=== PATIENT | male | born 1940 | race Hispanic/Latino ===

== ENCOUNTER 2017-07-05 06:27 | Day surgery (SDC) | payer OTHER ==
--- NOTE | 2017-07-04 16:51 | RAD REPORT ---
EXAM DESCRIPTION: RAD - Chest Pa And Lat (2 Views) - 07/04/2017 4:44 pm CLINICAL HISTORY: Hypertension, coronary artery disease. COMPARISON: 09/08/2016, 04/22/2014 FINDINGS: The lungs are mildly emphysematous but clear. The heart is mildly enlarged in size with a single lead pacer/ defibrillator device. No displaced fractures. IMPRESSION: Mild COPD.
[2017-07-04 16:54] LABS: Absolute Lymphocytes (CBC) 3.4 K/uL (0.7-4.9); Absolute Monocytes 0.4 K/uL (0.1-1.3); Absolute Neutrophil 2.7 K/uL (1.8-8.0); Basophils % 0.6 % (0-1.3); Eosinophils % 1.8 % (0-4.4); Hematocrit 41.7 % (39.6-49.0); Lymphocytes % 51.1 % (15.3-44.8); MCH 31.6 pg (27.0-35.0); MPV 8.9 fL (7.6-11.3); Monocytes % 6.2 % (3.3-12.3); RBC Red Blood Cell Count 4.39 M/uL (4.33-5.43)
[2017-07-04 17:22] LABS: Potassium 4.1 mEq/L (3.6-5.0)
[~2017-07-05 06:27] MED LIST: NA CHLORIDE 0.9% 500 ML ONE
[2017-07-05] MEDS ORDERED: HEPA 1000U/500MLS 2,000 UNIT/1,000 ML BAG IV ONE (06:53)
[2017-07-05] MEDS ORDERED: LIDOCAINE 1% 20 ML MDV ONE (06:53)
[2017-07-05] MEDS ORDERED: FENTANYL CITR 100 MCG/2 ML ONE (07:22)
[2017-07-05] MEDS ORDERED: MIDAZOLAM HCL 2 MG/2 ML INJ ONE (07:22)
[2017-07-05] MEDS ORDERED: ATROPINE SULF 1 MG/10 ML SYR IV ONE (07:22)
[2017-07-05] MEDS ORDERED: NA CHLORIDE 0.9% 50 ML ONE (07:23)
[2017-07-05] MEDS ORDERED: PRASUGREL (EFFIENT) 10 MG TAB ONE (08:18)
[2017-07-05] MEDS ORDERED: ASPIRIN 325 MG TAB ONE (08:18)
[2017-07-05] MEDS ORDERED: NA CHLORIDE 0.9% 1,000 ML IV SCH (10:00)
[2017-07-05] MEDS ORDERED: Morphine 2 MG/2 ML SYR IV PRN (10:08)
[2017-07-05] MEDS ORDERED: ZOLPIDEM TARTRATE 10 MG TABLET PO PRN (10:08)
[2017-07-05 10:27] LABS: Absolute Lymphocytes (CBC) 2.4 K/uL (0.7-4.9); Absolute Monocytes 0.3 K/uL (0.1-1.3); Absolute Neutrophil 2.7 K/uL (1.8-8.0); Basophils % 0.2 % (0-1.3); Eosinophils % 2.3 % (0-4.4); Hematocrit 39.2 % (39.6-49.0); Lymphocytes % 43.6 % (15.3-44.8); MCH 32.2 pg (27.0-35.0); MCV 95.8 fL (80-100); MPV 8.8 fL (7.6-11.3); Monocytes % 5.3 % (3.3-12.3)
[2017-07-05] MEDS ORDERED: NITROGLYCERIN 0.4 MG/TAB SL PRN (11:00)
[2017-07-05] MEDS: ACETAMINOPHEN 325 MG TABLET PO PRN ×2 (17:08→23:28)
--- NOTE | 2017-07-05 20:37 | OP ---
Surgeon: Josiah Johnson MD History Of Present Illness: Mr. Marquez is a patient of Dr. Bright. He is 76, has had a history of CHF , defibrillator, coronary artery disease status post stents in the LAD in the past as far as 2012. Chris murillo came in to see me in the office with classic unstable angina symptoms, abnormal EKG. He was admitt ed for outpatient heart catheterization. Procedures: Left heart catheterization, selective coronary artery angiogram, left ventriculogram, an d primary stent of the mid LAD. Procedure In Detail: He was prepped and draped in the routine sterile fashion given 2 mg of Versed f or IV sedation. A 6-Slovak sheath was introduced in the right common femoral artery and StarClose wa s to be used to close the case. The 6-Slovak catheters were used Tea for the left system and the right system had normal right coronary. Normal circumflex. Left ventriculogram showed an ejection fraction of 50% to 55% by pigtail catheter that is much improved compared to his previous studies. Chris murillo had a proximal LAD stent that was patent. Mid LAD had an 80% stenosis, which was reduced to 0% aft er using a 2.5 x 16 Synergy stent at 14 atmosphere. The wire was a Carson wire 0.14. The catheter g uide was XBLAD 3.5 with side holes. The patient tolerated the procedure well. There were no complic ations. Blood loss was 5 cc. Operators: Josiah Johnson M.D., and Fiona Bustamante. Anesthesia: Total conscious sedation was 45 minutes. Final Diagnosis: Coronary artery disease status post successful primary mid LAD stent. Plan: Plan is for him to stay overnight and go home in the morning. During the procedure, he receiv ed Angiomax, 60 of Effient mg, and 325 mg of aspirin. NB/MODL Voice ID: [id number] Report ID: [id number]
[2017-07-06 04:50] LABS: Absolute Lymphocytes (CBC) 2.5 K/uL (0.7-4.9); Absolute Monocytes 0.4 K/uL (0.1-1.3); Absolute Neutrophil 2.7 K/uL (1.8-8.0); Basophils % 0.3 % (0-1.3); Eosinophils % 2.9 % (0-4.4); Hematocrit 39.8 % (39.6-49.0); Lymphocytes % 43.1 % (15.3-44.8); MCH 31.9 pg (27.0-35.0); MCV 95.4 fL (80-100); MPV 9.1 fL (7.6-11.3); Monocytes % 7.3 % (3.3-12.3); RBC Red Blood Cell Count 4.17 M/uL (4.33-5.43)
[2017-07-06] MEDS ORDERED: MULTIVIT W/ MINERAL TAB PO SCH (09:00)
[2017-07-06] MEDS ORDERED: ASPIRIN 81 MG CHEWABLE TABLET PO SCH (09:00)
[2017-07-06] MEDS ORDERED: DOCOSAHEXANOIC AC/EPA 1000 MG PO SCH (09:00)
[2017-07-06] MEDS ORDERED: FUROSEMIDE 40 MG TABLET PO SCH (09:00)
[2017-07-06] MEDS ORDERED: PRASUGREL (EFFIENT) 10 MG TAB PO SCH (09:00)
[2017-07-06] MEDS ORDERED: POTASSIUM CL SA 10 MEQ TAB PO SCH (09:00)
[2017-07-06] MEDS ORDERED: METOPROLOL TAR 50 MG TAB PO SCH (09:00)
[2017-07-06] MEDS ORDERED: FENOFIBRATE 160 MG TAB PO SCH (09:00)
--- NOTE | 2017-07-06 12:19 | EKG ---
Test Date: 2017-07-06 Test Time: 08:40:00 Wallpaper Cleaner: LETY MEASUREMENT RESULTS: Intervals: Rate: 64 SD: 192 QRSD: 98 QT: 402 QTc: 414 [place]: P: 60 SD: 192 QRS: -19 T: 162 INTERPRETIVE STATEMENTS: Normal sinus rhythm Septal infarct, age undetermined ST & T wave abnormality, consider lateral ischemia Abnormal ECG Compared to ECG 09/11/2015 13:01:50 ST (T wave) deviation now present Left ventricular hypertrophy no longer present T-wave abnormality no longer present Myocardial infarct finding still present Possible ischemia still present Electronically Signed On 07-06-17 12:19:01 CDT by George Connolly
== END 2017-07-06 09:48 | disposition home or self-care (01) ==
LOC: CCL 06:27 → 4TH 08:56 → CCL 07-06 09:48
DX: I25.110 Atherosclerotic heart disease of native coronary artery with unstable angina pectoris (principal); I42.8 Other cardiomyopathies; I11.0 Hypertensive heart disease with heart failure; I50.9 Heart failure, unspecified; R06.02 Shortness of breath; E78.6 Lipoprotein deficiency; Z95.5 Presence of coronary angioplasty implant and graft; Z95.810 Presence of automatic (implantable) cardiac defibrillator; Z82.49 Family history of ischemic heart disease and other diseases of the circulatory system
CPT/HCPCS: 36415 ×2; 71046; 80048 ×2; 85025 ×3; 85347 ×3; 85610; 85730; 93005; 93458; C1725; C1877; C1893; C9600; J0583; J2250; J3010

== ENCOUNTER 2018-02-26 19:43 | Emergency (ER) | payer OTHER ==
[2018-02-26] MEDS ORDERED: HYDROCODONE/APAP 5/325 MG TAB ONE (20:21)
--- NOTE | 2018-02-26 21:00 | RAD REPORT ---
EXAM DESCRIPTION: RAD - Chest Single View - 02/26/2018 8:49 pm CLINICAL HISTORY: fall Chest pain. COMPARISON: Chest Pa And Lat (2 Views) dated 07/04/2017; Chest Pa And Lat (2 Views) dated 09/08/2016; Chest Single View dated 09/11/2015; CHEST PA AND LAT 2 VIEW dated 04/22/2014 FINDINGS: Portable technique limits examination quality. The lungs are grossly clear. The heart is normal in size. No displaced fractures.Single lead pacer/ d efibrillator device is present. IMPRESSION: No acute intrathoracic process suspected.
--- NOTE | 2018-02-26 21:02 | RAD REPORT ---
EXAM DESCRIPTION: RAD - Shoulder Right 2 View - 02/26/2018 8:49 pm CLINICAL HISTORY: fall;Pain COMPARISON: Shoulder Right 2 View dated 03/17/2015 FINDINGS: Osteoarthritic changes present involving the glenohumeral and AC joint. No acute fracture or dislocation seen.
--- NOTE | 2018-02-26 21:03 | RAD REPORT ---
EXAM DESCRIPTION: RAD - Hip Right 2 View - 02/26/2018 8:49 pm CLINICAL HISTORY: fall;Pain COMPARISON: No comparisons FINDINGS: Mild osteoarthritis affects the right hip. No fracture, dislocation or aggressive marrow l esion.
--- NOTE | 2018-02-26 21:06 | RAD REPORT ---
EXAM DESCRIPTION: RAD - Elbow Right 3 View - 02/26/2018 8:49 pm CLINICAL HISTORY: fall;Pain COMPARISON: No comparisons FINDINGS: No acute fracture or dislocation of the right elbow is seen.
--- NOTE | 2018-02-26 21:07 | RAD REPORT ---
EXAM DESCRIPTION: RAD - Hand Right 3 View - 02/26/2018 8:52 pm CLINICAL HISTORY: fall;Pain COMPARISON: No comparisons FINDINGS: Multi joint osteoarthritic changes are present involving the right hand. No acute fracture or dislocation is evident.
--- NOTE | 2018-02-26 21:45 | ER ---
Nurse's Notes [facility] Name: Aiden Marquez Age: 77 yrs Sex: Male : 1940 Arrival Date: 02/26/2018 Time: 19:46 Bed 4 Private MD: Virginie Bright C Diagnosis: Contusions right shoulder, elbow, hand and hip. 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 Unknown if patient hit head. Patient does not remember fall. Care prior to arrival: None. Mechanism of Injury: Fall from standing position. Trauma event details: Injury occurred in the [facility], Injury occurred: in a public building. Injury occurred: February 26, 2018 Injury occurred at: 13:45. 19:51 Acuity: MONI 3 aj 19:51 Method Of Arrival: Ambulatory aj 20:10 Transition of care: patient was not received from another setting of care. Onset of ea symptoms was February 26, 2018. Risk Assessment: Do you want to hurt yourself or someone else? Patient reports no desire to harm self or others. Initial Sepsis Screen: Does the patient meet any 2 criteria? No. Patient's initial sepsis screen is negative. Does the patient have a suspected source of infection? No. Patient's initial sepsis screen is negative. Trauma Activation: Alert Physician: ED Physician; Name: ; Notified At: ; Arrived At: Physician: General Surgeon; Name: ; Notified At: ; Arrived At: Physician: Radiology; Name: ; Notified At: ; Arrived At: Physician: Respiratory; Name: ; Notified At: ; Arrived At: Physician: Lab; Name: ; Notified At: ; Arrived At: - Immunization history: Last tetanus immunization: - up to date. - Social history:: Smoking status: Patient/guardian denies using tobacco. - Ebola Screening: : No symptoms or risks identified at this time. Screenin:10 Abuse screen: Denies threats or abuse. Nutritional screening: No deficits noted. ea Tuberculosis screening: No symptoms or risk factors identified. Fall Risk None identified. Primary Survey: 19:51 NO uncontrolled hemorrhage observed. Breathing/Chest: Respiratory pattern: regular, aj Respiratory effort: spontaneous, unlabored. Circulation: Skin color: pink, Skin temperature: warm, dry. Disability Alert. 21:15 Exposure/Environment: A warming method has been applied: A warm blanket has been ea provided to the patient. Reassessment Airway Airway Patent Breathing/Chest Respiratory pattern Regular Respiratory effort Spontaneous Unlabored Breath sounds Clear. Secondary Survey: 20:10 HEENT: No deficits noted. Musculoskeletal: Circulation, motion, and sensation intact. ea Reports pain in posterior aspect of right shoulder and anterior aspect of right shoulder. Assessment: 19:51 General: Appears in no apparent distress. comfortable, Behavior is calm, cooperative, aj appropriate for age. Pain: Complains of pain in posterior aspect of right shoulder. Neuro: Level of Consciousness is awake, alert, obeys commands, Oriented to person, place, time, situation, Appropriate for age. Respiratory: Airway is patent Respiratory effort is even, unlabored, Respiratory pattern is regular, symmetrical. Derm: Skin is intact, is healthy with good turgor, Skin is pink, warm \T\ dry. normal. 20:10 General: Appears in no apparent distress. Behavior is calm, cooperative, appropriate ea for age. Pain: Complains of pain in posterior aspect of right shoulder and anterior aspect of right shoulder. Neuro: Level of Consciousness is awake, alert, obeys commands, Oriented to person, place, time, situation, Appropriate for age. Cardiovascular: Patient's skin is warm and dry. Respiratory: Airway is patent Respiratory effort is even, unlabored, Respiratory pattern is regular, symmetrical. Derm: Skin is pink, warm \T\ dry. Musculoskeletal: Circulation, motion, and sensation intact. 21:15 Reassessment: Patient and/or family updated on plan of care and expected duration. Pain ea level reassessed. Patient is alert, oriented x 3, equal unlabored respirations, skin warm/dry/pink. Pt reports pain is decreased Patient states feeling better. 21:59 Reassessment: Patient and/or family updated on plan of care and expected duration. Pain ea level reassessed. Patient is alert, oriented x 3, equal unlabored respirations, skin warm/dry/pink. Discharge instructions given to patient, verbalized the understanding of instruction Patient states feeling better. Vital Signs: 19:51 BP 158 / 73; Pulse 88; Resp 20; Temp 97.6; Pulse Ox 98% on R/A; Weight 90.72 kg; Height aj 5 ft. 7 in. (170.18 cm); 21:10 BP 148 / 70; Pulse 70; Resp 19; Pulse Ox 99% on R/A; ea 19:51 Body Mass Index 31.32 (90.72 kg, 170.18 cm) aj Micha Coma Score: 19:51 Eye Response: spontaneous(4). Verbal Response: oriented(5). Motor Response: obeys aj commands(6). Total: 15. 21:10 Eye Response: spontaneous(4). Verbal Response: oriented(5). Motor Response: obeys ea commands(6). Total: 15. Trauma Score (Adult): 19:51 Eye Response: spontaneous(1); Verbal Response: oriented(1); Motor Response: obeys aj commands(2); Systolic BP: > 89 mm Hg(4); Respiratory Rate: 10 to 29 per min(4); [place] Score: 15; Trauma Score: 12 ED Course: 19:46 Patient arrived in ED. mr 19:46 Virginie Bright MD is Private Physician. mr 19:52 Triage completed. aj 19:54 Arm band placed on left wrist. Patient placed in an exam room. aj 19:56 Joey Ware MD is Attending Physician. pkl 20:06 Julia Miranda RN is Primary Nurse. ea 20:10 Patient has correct armband on for positive identification. Placed in gown. Bed in low ea position. Call light in reach. 20:10 Patient maintains SpO2 saturation greater than 95% on room air. Thermoregulation: warm ea blanket given to patient. 20:49 X-ray completed. Patient tolerated procedure well. Patient moved back from radiology. sg4 20:50 XRAY CXR (1 view) In Process Unspecified. EDMS 20:50 Shoulder Right (2 View) XRAY In Process Unspecified. EDMS 20:50 Elbow Right 3 View XRAY In Process Unspecified. EDMS 20:50 Hand Right 3 View XRAY In Process Unspecified. EDMS 20:50 Hip Right 2 View XRAY In Process Unspecified. EDMS 21:43 Virginie Bright MD is Referral Physician. pkl 22:00 No provider procedures requiring assistance completed. Patient did not have IV access ea during this emergency room visit. Administered Medications: 20:15 Drug: [place] 5 mg-325 mg 1 tabs Route: PO; ea 21:15 Follow up: Response: No adverse reaction; Pain is decreased ea Intake: 22:01 PO: 150ml (Water); Total: 150ml. ea Outcome: :44 Discharge ordered by . ko 22:00 Discharged to home ambulatory, with significant other. ea 22:00 Condition: improved 22:00 Discharge instructions given to patient, Instructed on discharge instructions, follow up and referral plans. medication usage, Demonstrated understanding of instructions, follow-up care, medications, Prescriptions given X 1. 22:02 Patient's length of stay was not longer than 2 hours. ea 22:03 Patient left the ED. ea Signatures: Dispatcher [employer] Carine Borges RN RN aj Lam, Pin, MD MD pkl Rivera, Mary mr Antunez, Elena, RN RN ea Garcia, Susana sg4
--- NOTE | 2018-02-26 21:45 | EDPHYS ---
Physician Documentation [facility] Name: Aiden Marquez Age: 77 yrs Sex: Male : 1940 Arrival Date: 02/26/2018 Time: 19:46 Bed 4 Private MD: Virginie Bright C ED Physician Joey Ware HPI: 02/26 20:07 This 77 yrs old Male presents to ER via Ambulatory with complaints of Fall pkl Injury. 20:07 Details of fall: The patient fell from seated position. Onset: The symptoms/episode pkl began/occurred just prior to arrival, 6 hour(s) ago. Associated injuries: The patient sustained right shoulder, contusion, painful injury, right elbow, contusion, painful injury, right hand, contusion, painful injury, right hip, contusion, painful injury. Patient denies any head injury or LOC. - Immunization history: Last tetanus immunization: - up to date. - Social history:: Smoking status: Patient/guardian denies using tobacco. - Ebola Screening: : No symptoms or risks identified at this time. ROS: 20:07 Eyes: Negative for injury, pain, redness, and discharge, ENT: Negative for injury, pkl pain, and discharge, Neck: Negative for injury, pain, and swelling, Cardiovascular: Negative for chest pain, palpitations, and edema, Respiratory: Negative for shortness of breath, cough, wheezing, and pleuritic chest pain, Abdomen/GI: Negative for abdominal pain, nausea, vomiting, diarrhea, and constipation, Back: Negative for injury and pain, : Negative for injury, bleeding, discharge, and swelling, Skin: Negative for injury, rash, and discoloration, Neuro: Negative for headache, weakness, numbness, tingling, and seizure. 20:07 MS/extremity: Positive for contusion, pain, of the right shoulder, elbow, hand and hip. Exam: 20:07 Head/Face: Normocephalic, atraumatic. Eyes: Pupils equal round and reactive to light, pkl extra-ocular motions intact. Lids and lashes normal. Conjunctiva and sclera are non-icteric and not injected. Cornea within normal limits. Periorbital areas with no swelling, redness, or edema. ENT: Nares patent. No nasal discharge, no septal abnormalities noted. Tympanic membranes are normal and external auditory canals are clear. Oropharynx with no redness, swelling, or masses, exudates, or evidence of obstruction, uvula midline. Mucous membranes moist. Neck: Trachea midline, no thyromegaly or masses palpated, and no cervical lymphadenopathy. Supple, full range of motion without nuchal rigidity, or vertebral point tenderness. No Meningismus. Chest/axilla: Normal chest wall appearance and motion. Nontender with no deformity. No lesions are appreciated. Cardiovascular: Regular rate and rhythm with a normal S1 and S2. No gallops, murmurs, or rubs. Normal PMI, no JVD. No pulse deficits. Respiratory: Lungs have equal breath sounds bilaterally, clear to auscultation and percussion. No rales, rhonchi or wheezes noted. No increased work of breathing, no retractions or nasal flaring. Abdomen/GI: Soft, non-tender, with normal bowel sounds. No distension or tympany. No guarding or rebound. No evidence of tenderness throughout. Back: No spinal tenderness. No costovertebral tenderness. Full range of motion. Skin: Warm, dry with normal turgor. Normal color with no rashes, no lesions, and no evidence of cellulitis. Neuro: Awake and alert, GCS 15, oriented to person, place, time, and situation. Cranial nerves II-XII grossly intact. Motor strength 5/5 in all extremities. Sensory grossly intact. Cerebellar exam normal. Normal gait. 20:07 Musculoskeletal/extremity: Extremities: grossly normal except: noted in the right shoulder, elbow, hand and hip: contusion, pain. Vital Signs: 19:51 BP 158 / 73; Pulse 88; Resp 20; Temp 97.6; Pulse Ox 98% on R/A; Weight 90.72 kg; Height aj 5 ft. 7 in. (170.18 cm); 21:10 BP 148 / 70; Pulse 70; Resp 19; Pulse Ox 99% on R/A; ea 19:51 Body Mass Index 31.32 (90.72 kg, 170.18 cm) [place] Coma Score: 19:51 Eye Response: spontaneous(4). Verbal Response: oriented(5). Motor Response: obeys aj commands(6). Total: 15. 21:10 Eye Response: spontaneous(4). Verbal Response: oriented(5). Motor Response: obeys ea commands(6). Total: 15. Trauma Score (Adult): 19:51 Eye Response: spontaneous(1); Verbal Response: oriented(1); Motor Response: obeys aj commands(2); Systolic BP: > 89 mm Hg(4); Respiratory Rate: 10 to 29 per min(4); Micha Score: 15; Trauma Score: 12 MDM: 19:56 Patient medically screened. pkl 21:42 Data reviewed: vital signs, nurses notes, radiologic studies, plain films. pkl 02/26 20:06 Order name: XRAY CXR (1 view); Complete Time: 21:39 pkl 02/26 20:06 Order name: Shoulder Right (2 View) XRAY; Complete Time: 21:39 pkl 02/26 20:06 Order name: Elbow Right 3 View XRAY; Complete Time: 21:39 pkl 02/26 20:06 Order name: Hand Right 3 View XRAY; Complete Time: 21:39 pkl 02/26 20:06 Order name: Hip Right 2 View XRAY; Complete Time: 21:39 pkl 02/26 21:42 Order name: Arm-Sling; Complete Time: 21:58 pkl Administered Medications: 20:15 Drug: Flat [place] 5 mg-325 mg 1 tabs Route: PO; ea 21:15 Follow up: Response: No adverse reaction; Pain is decreased ea Disposition: 02/26/18 21:44 Discharged to Home. Impression: Contusions right shoulder, elbow, hand and hip. S/P Fall. - Condition is Stable. - Prescriptions for Ultram 50 mg Oral Tablet - take 1 tablet by ORAL route every 8 hours As needed; 20 tablet. - Medication Reconciliation Form, Thank You Letter, Antibiotic Education, Prescription Opioid Use form. - Follow up: Virginie Bright MD; When: 2 - 3 days; Reason: Re-evaluation by your physician. - Problem is new. - Symptoms have improved. Signatures: Dispatcher [employer] EDCarine Guzman RN RN aj Lam, Pin, MD MD pkl Antunez, Elena, RN RN ea Corrections: (The following items were deleted from the chart) 22:03 21:44 02/26/2018 21:44 Discharged to Home. Impression: Contusions right shoulder, ea elbow, hand and hip. S/P Fall. Condition is Stable. Forms are Medication Reconciliation Form, Thank You Letter, Antibiotic Education, Prescription Opioid Use. Follow up: A Bright; When: 2 - 3 days; Reason: Re-evaluation by your physician. Problem is new. Symptoms have improved. pkl
== END 2018-02-26 22:03 | disposition home or self-care (01) ==
LOC: ER 19:43
DX: S40.011A Contusion of right shoulder, initial encounter (principal); S50.01XA Contusion of right elbow, initial encounter; S60.221A Contusion of right hand, initial encounter; S70.01XA Contusion of right hip, initial encounter; W18.09XA Striking against other object with subsequent fall, initial encounter; Y92.481 Parking lot as the place of occurrence of the external cause; M16.11 Unilateral primary osteoarthritis, right hip
CPT/HCPCS: 71045; 99284

== ENCOUNTER 2018-05-30 07:32 | Day surgery (SDC) | payer OTHER ==
--- OUTSIDE RECORDS SUMMARY | 2018-05-30 07:38 | XMS REPORT ---
:1940 [facility] Address [address] [place] [address] Dr. Mei [address] [place] [id number] Care Team Providers Name Role Phone Unavailable Unavailable Unavailable Problems This patient has no known problems. Allergies, Adverse Reactions, Alerts This patient has no known allergies or adverse reactions. Medications This patient has no known medications.
[2018-05-30] MEDS ORDERED: Ringers Lactate 1,000 ML IV ONE ×2 (07:49→07:56)
[2018-05-30] MEDS ORDERED: LIDOCAINE 1% MPF 5 ML VIAL ONE (09:40)
[2018-05-30] MEDS ORDERED: PROPOFOL 200 MG/20 ML VIAL IV ONE (09:40)
[2018-05-30 11:18] LABS: Carcinoembryonic Antigen 0.7 ng/mL (0-5.0)
--- NOTE | 2018-05-30 11:32 | ENDO RPT ---
[address], [address] COLONOSCOPY PROCEDURE REPORT EXAM DATE: 05/30/2018 PATIENT NAME: Aiden Marquez MR #: [id number] BIRTHDATE: 1940 ATTENDING: Yunior Kam Dr STATUS: outpatient HEALTH CARE COORDINATOR: Mila Alvarado and Crystal Mensah RN INDICATIONS: The patient is a 77 yr old Male here for a colonoscopy due to personal history of colon polyps PROCEDURE PERFORMED: Colonoscopy with snare polypectomy and Colon w/ endoclip MEDICATIONS: Per Anesthesia. ESTIMATED BLOOD LOSS: None CONSENT: The patient understands the risks and benefits of the procedure and understands that these risks include, but are not limited to: sedation, allergic reaction, infection, perforation and/or bleeding. Alternative means of evaluation and treatment include, among others: physical exam, x-rays, and/or surgical intervention. The patient elects to proceed with this endoscopic procedure. DESCRIPTION OF PROCEDURE: During intra-op preparation period all mechanical medical equipment was checked for proper function. Hand hygiene and appropriate measures for infection prevention was taken. Procedure, possible complications, alternatives including, but not limited to possibility of bleeding, perforation, tear, infection, sepsis, need for surgery, need for blood transfusion, were explained to the patient. After the risks, benefits and alternatives of the procedure were thoroughly explained, Informed consent was verified, confirmed and timeout was successfully executed by the treatment team. The patient was placed in the left lateral position. A digital rectal exam was performed and revealed several skin tags. After appropriate level of anesthesia, the scope was passed. The EC-[id number] ([id number]) endoscope was introduced through the anus and advanced to the cecum, which was identified by both the appendix and ileocecal valve. The quality of the prep was good. The instrument was then slowly withdrawn as the colon was fully examined. Scope withdrawal time was 12 minutes. COLON FINDINGS: A polypoid shaped flat polyp measuring 1.2 cm in size was found at the cecum. A polypectomy was performed with a cold snare. The resection was complete, the polyp tissue was completely retrieved and sent to histology. A polypoid shaped sessile polyp measuring 1 cm in size was found in the ascending colon. A polypectomy was performed using snare cautery. The resection was complete, the polyp tissue was completely retrieved and sent to histology. The wound at the site was closed by placing hemoclips. Three (3) placements were made. There was minimal blood loss from maneuver subsiding by end of procedure. Three (3) placements were made. There was minimal blood loss from maneuver subsiding by end of procedure. A flat polyp measuring 3 cm in size with a mucous cap was found at the hepatic flexure. Mild diverticulosis was noted in the sigmoid colon. No bleeding was noted from the diverticulosis. Small internal hemorrhoids were found. Retroflexed views revealed small hemorrhoids. The scope was then completely withdrawn from the patient and the procedure terminated. ADVERSE EVENTS: There were no complications. IMPRESSIONS: 1. 1.2 X 0.3 cm flat polyp in the cecum; polypectomy was performed with a cold snare 2. 1 cm sessile polyp in the ascending colon; polypectomy was performed using snare cautery; the wound at the site was closed by placing hemoclips 3. 3 cmm flat polyp on inner side of fold at the hepatic flexure (with possible invasion into mucosa) - not removed 4. Mild diverticulosis was noted in the sigmoid colon 5. Small internal hemorrhoids 6. Intubation to cecum 7. Personal history of colon polyps RECOMMENDATIONS: 1. await biopsy results 2. avoid NSAIDS for 2 weeks 3. consult tertiary center for possible EMR/ESD of large flat hepatic flexure polyp 4. CT scan 5. CEA level RECALL: Return in 1 year(s) for Colonoscopy. Yunior Kam Dr eSigned: Yunior Kam Dr 05/30/2018 10:23 AM cc: Hang Bright M.D. CPT CODES: ICD9 CODES: PATIENT NAME: Aiden Marquez MR#: [id number]
--- NOTE | 2018-05-30 13:18 | RAD REPORT ---
EXAM DESCRIPTION: CT - Chest Abdomen Pelvis W Cont - 05/30/2018 1:08 pm CLINICAL HISTORY: Chest and abdomen pain. 3CM FLAT POLYP IN INNER SIDE OF FOLD HEPATIC FLEXS COMPARISON: No comparisons TECHNIQUE: Approximately 100 mL nonionic IV contrast was administered to the patient. All CT scans are performed using dose optimization technique as appropriate and may include automated exposure control or mA/KV adjustment according to patient size. FINDINGS: The lungs are clear.No pleural or pericardial effusion.No intrathoracic adenopathy.Pacer d evice is in place. Mild diffuse fatty liver is seen. No focal liver lesion of concern present. 15 mm cyst is present dominick r the dome of the liver. A few additional small cyst suspected as well in the dome region. The spleen , adrenal glands, pancreas and kidneys are within normal limits. No bowel obstruction, free air, free fluid or abscess. Normal appendix. Colonic diverticulosis is pre sent without diverticulitis. No pathologic lymphadenopathy in the abdomen or pelvis. 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 Prostatomegaly is s een. Small fat containing right inguinal hernia. IMPRESSION: Mild fatty liver is seen without concerning liver lesion. Diverticulosis coli without diverticulitis identified. Moderate prostatomegaly.
== END 2018-05-30 13:00 | disposition home or self-care (01) ==
LOC: OR 07:32
PROVIDERS: ATTEND Internal Medicine Gastroenterology
PROC: 0DBH8ZX Excision of Cecum, Via Natural or Artificial Opening Endoscopic, Diagnostic (ICD-10-PCS; 2018-05-30)
PROC: 0DBK8ZX Excision of Ascending Colon, Via Natural or Artificial Opening Endoscopic, Diagnostic (ICD-10-PCS; principal; 2018-05-30 08:45)
DX: Z12.11 Encounter for screening for malignant neoplasm of colon (principal); D12.0 Benign neoplasm of cecum; D12.2 Benign neoplasm of ascending colon; K64.8 Other hemorrhoids; K57.30 Diverticulosis of large intestine without perforation or abscess without bleeding; E78.5 Hyperlipidemia, unspecified; I10 Essential (primary) hypertension; I25.10 Atherosclerotic heart disease of native coronary artery without angina pectoris; I42.9 Cardiomyopathy, unspecified; I25.2 Old myocardial infarction; Z79.82 Long term (current) use of aspirin; Z79.899 Other long term (current) drug therapy; Z87.891 Personal history of nicotine dependence; Z95.810 Presence of automatic (implantable) cardiac defibrillator; Z95.5 Presence of coronary angioplasty implant and graft
CPT/HCPCS: 45385; 36415; 82565; 88305; 82378; 71260; 74177; Q9967; J2704

== ENCOUNTER 2020-05-21 16:30 | Emergency (ER) | payer OTHER ==
--- OUTSIDE RECORDS SUMMARY | 2020-05-21 16:33 | XMS REPORT | Continuity of Care Document ---
:1940 Author Organization [facility] t Address [address] [place] [address] Care Team Providers Name Role Phone Pcp MD Primary Care Physician Unavailable Amy DHALIWAL, L Attending Clinician IDANIA Attending Clinician Unavailable IDANIA Admitting Clinician Unavailable Problems This patient has no known problems. Allergies, Adverse Reactions, Alerts This patient has no known allergies or adverse reactions. Social History Social Habit Start Date Stop Date Quantity Comments Source History [facility] - Alcohol Std Drinks Medica l Center History [facility] B[facility] Medical Sisi ter Sex Assigned At [facility] Tobacco use and 2018-07-28 2018-07-28 Never used [facility] - exposure 00:00:00 00:00:00 Medical Center Alcohol intake 2018-07-28 2018-07-28 [facility] non-drinker of Medical Ce nter alcohol (finding) History [facility] 2018-07-21 2018-07-[address] [facility] - Alcohol Frequency 00:00:00 00:00:00 Medical Center Smoking Status Start Date Stop Date Source Never smoker [facility] Medications Ordered Filled Start Stop Current Ordering Indication Dosage Frequency Signature Comments Components Source Medication Medication Date Date Medication? Clinician (SIG) Name Name venkata Yes 80mg QD Take [address] [facility] (LIPITOR) 6-06 by mouth [facility] - 80 MG 18:50: daily. Medical tablet 14 Center furosemide Yes 40mg QD Take [address] (LASIX) 40 6-06 by [facility] - MG tablet 18:50: daily. Medica l 14 Center prasugrel 2019 Yes 10mg QD Take [address] (EFFIENT) 6-06 by [facility] - 10 mg Tab 18:50: daily. Medica l tablet 14 Center pantoprazol Yes 40mg QD Take [address] [address] [facility] 6-06 by mouth [facility] - (PROTONIX) 18:50: daily. Medic al 40 MG 14 Center tablet metoprolol Yes 50mg QD Take [address] (TOPROL-XL) 6-06 by mouth [facility] - 50 MG 24 hr 18:50: every Medic al tablet 14 morning. [place] aspirin 81 Yes 81mg QD Take [address] MG EC 6-06 by [facility] - tablet 18:50: daily. Medical 14 [place] valsartan Yes 40mg QD Take [address] (DIOVAN) 40 6-06 by mouth Luke [facility] - MG tablet 18:50: every Medical 14 morning. [place] potassium Yes 20meq QD Take [address] chloride SA 6-06 mEq by [facility] - (K-DUR,KLOR 18:50: mouth Medic al -CON) 20 14 daily. Center MEQ tablet Procedures This patient has no known procedures. Plan of Care Planned Activity Planned Date Details Comments Source Future Scheduled 2019-10-23 INFLUENZA VACCINE (#1) [facility] Test 00:00:00 [code = INFLUENZA Medical Ce nter VACCINE (#1)] Future Scheduled 2005-09-[address] [facility] [facility] - Test 00:00:00 WELLNESS (YEAR 2 or Medical Center FIRST YEAR if no IPPE) [code = MEDICARE ANNUAL WELLNESS (YEAR 2 or FIRST YEAR if no IPPE)] Future Scheduled 2004-11-19 PNEUMOCOCCAL 65+ YRS [facility] - Test 00:00:00 (1 of 1 - Medical Center [id number] PCV13) [code = PNEUMOCOCCAL 65+ YRS (1 of 1 - [id number] PCV13)] Encounters Start End Encounter Admission Attending Care Care Encounter Source Date/Time Date/Time Type Type Clinicians Facility Department ID 2020-05-05 2020-05-05 Office RODERICK Reyes [id number] 14:38:43 15:06:43 Visit Ras[facility] [id number] Surgical [id number] Special [id number] es [address] Results Test Description Test Time Test Comments Results Result Comments Source TISSUE EXAM 2018-07-31 Surgical Pathology 15:26:00 Report Case: [id number] Authorizing Provider: Denis Castrejon MD Collected: 07/27/2018 1729 Ordering Location: [facility] Endoscopy Received: 07/28/2018 0746 Services Pathologist: Krystyna Riggs MD Specimen: Polyp, Colon - Hepatic Flexure, hepatic flexure polyps COLON, HEPATIC FLEXURE,, ENDOSCOPIC POLYPECTOMY: - PIECES OF TUBULAR ADENOMA - NO DEFINITE HIGH GRADE DYSPLASIA OR INVASIVE CARCINOMA SEEN Signing Pathologist Direct Phone Line: [phone] ically signed by Krystyna Riggs MD on 07/31/2018 at 3:26 [id number] is colonoscopy, polypectomy. Preoperative and postoperative diagnoses polyp of colon, unspecified part of colon, unspecified typeHepatic flexure polypsThe specimen is received in one part labeled with the patient's name, Syd Marquez, and accession number, [id number] which corresponds to the accompanying requisition.The specimen is received in a biohazard bag in a specimen container and in formalin labeled "colon polyp hepatic flexure" and consists of two allen-pink lobulated polyps ranging from 0.4 to 0.7 cm. The bases are inked, one blue and one orange, and the polyps are bisected submitted entirely in cassette A1. AG/ew PERFORMED
--- NOTE | 2020-05-21 18:37 | EDPHYS ---
Physician Documentation [facility] Name: Aiden Marquez Age: 79 yrs Sex: Male : 1940 Arrival Date: 05/21/2020 Time: 16:31 Bed 15 Private MD: ED Physician Eric Slade HPI: 05/21 17:42 This 79 yrs old Male presents to ER via Ambulatory with complaints of Chest jr8 Pain. Historical: - Allergies: 16:48 No Known Allergies; ca1 - PMHx: 16:48 Hyperlipidemia; Hypertension; Defibrillator; Myocardial infarction; ca1 - PSHx: 16:48 Heart stents; ca1 - Immunization history:: Client reports receiving the 2nd dose of the Covid vaccine, Date received: March 2020 Pneumococcal vaccine is up to date, Flu vaccine is up to date. - Social history:: Smoking status: Patient denies any tobacco usage or history of. ROS: 17:50 Respiratory: Negative for shortness of breath, cough, wheezing, and pleuritic chest jr8 pain, Abdomen/GI: Negative for abdominal pain, nausea, vomiting, diarrhea, and constipation, Back: Negative for injury and pain, MS/Extremity: Negative for injury and deformity, Neuro: Negative for headache, weakness, numbness, tingling, and seizure. 17:50 Cardiovascular: Positive for chest pain, with movement, of the Right sided. 17:51 Respiratory: Positive for Increased pain with inspiration. jr8 17:55 All other systems are negative. jr8 Exam: 17:51 Chest/axilla: Normal chest wall appearance and motion. Nontender with no deformity. jr8 No lesions are appreciated. Cardiovascular: Regular rate and rhythm with a normal S1 and S2. No gallops, murmurs, or rubs. Normal PMI, no JVD. No pulse deficits. Respiratory: Lungs have equal breath sounds bilaterally, clear to auscultation and percussion. No rales, rhonchi or wheezes noted. No increased work of breathing, no retractions or nasal flaring. Abdomen/GI: Soft, non-tender, with normal bowel sounds. No distension or tympany. No guarding or rebound. No evidence of tenderness throughout. Back: No spinal tenderness. No costovertebral tenderness. Full range of motion. Neuro: Awake and alert, GCS 15, oriented to person, place, time, and situation. Cranial nerves II-XII grossly intact. Motor strength 5/5 in all extremities. Sensory grossly intact. Cerebellar exam normal. Normal gait. 17:54 Chest/axilla: Inspection: normal, Palpation: tenderness, that is moderate, of the jr8 right nipple, that partially reproduces the patient's complaints. Vital Signs: 16:43 BP 126 / 65; Pulse 91; Resp 17 S; Temp 97.1(TE); Pulse Ox 96% on R/A; Weight 89.81 kg ca1 (R); Height 5 ft. 7 in. (170.18 cm) (R); Pain 5/10; 18:29 BP 121 / 74; Pulse 80; Resp 18; Pulse Ox 95% on R/A; bw 16:43 Body Mass Index 31.01 (89.81 kg, 170.18 cm) ca1 MDM: 17:36 Patient medically screened. jr8 18:35 Data reviewed: vital signs, nurses notes, radiologic studies, plain films, and as a jr8 result, I will discharge patient. Data interpreted: Pulse oximetry: on room air is 95 %. Interpretation: normal. Counseling: I had a detailed discussion with the patient and/or guardian regarding: the historical points, exam findings, and any diagnostic results supporting the discharge/admit diagnosis, radiology results, the need for outpatient follow up, a family practitioner, to return to the emergency department if symptoms worsen or persist or if there are any questions or concerns that arise at home. Special discussion: Based on the patient's history, exam, and Dx evaluation, there is no indication for emergent intervention or inpatient Tx. It is understood by the patient/guardian that if the Sx's persist or worsen they need to return immediately for re-evaluation. 05/21 17:45 Order name: Chest Pa And Lat (2 Views) XRAY jr8 05/21 16:48 Order name: EKG; Complete Time: 16:49 ca1 05/21 16:48 Order name: EKG - Nurse/Tech; Complete Time: 16:52 ca1 Administered Medications: 18:36 Drug: Tylenol #3 (300 mg-30 mg) 1 tablet Route: PO; bw Disposition: 05/22 07:19 Co-signature as Attending Physician, Eric Slade MD I agree with the assessment and jewels plan of care. Disposition: 05/21/20 18:36 Discharged to Home. Impression: Other chest pain. - Condition is Stable. - Discharge Instructions: Chest Wall Pain. - Prescriptions for Tylenol- Codeine #3 300-30 mg Oral Tablet - take 2 tablets by ORAL route every 4-6 hours As needed; 20 tablet. - Medication Reconciliation Form, Thank You Letter, Antibiotic Education, Prescription Opioid Use form. - Follow up: Virginie Bright MD; When: 2 - 3 days; Reason: Recheck today's complaints, Continuance of care, Re-evaluation by your physician. - Problem is new. - Symptoms have improved. Signatures: Dispatcher [employer] EDMS Eric Slade MD MD cha Roszak, Josh, PA PA jr8 Argentina Diaz RN RN Kaylah Lawson RN RN bw Corrections: (The following items were deleted from the chart) 05/21 18:54 18:36 05/21/2020 18:36 Discharged to Home. Impression: Other chest pain. Condition is bw Stable. Forms are Medication Reconciliation Form, Thank You Letter, Antibiotic Education, Prescription Opioid Use. Follow up: Virginie Bright; When: 2 - 3 days; Reason: Recheck today's complaints, Continuance of care, Re-evaluation by your physician. Problem is new. Symptoms have improved. jr8
--- NOTE | 2020-05-21 18:37 | ER ---
Nurse's Notes [facility] Name: Aiden Marquez Age: 79 yrs Sex: Male : 1940 Arrival Date: 05/21/2020 Time: 16:31 Bed 15 Private MD: Diagnosis: Other chest pain Presentation: 05/21 16:43 Chief complaint: Patient states: Pain on the R side underneath R breast, hurts to move. 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 Takes Advil for the pain, with relief. Denies other symptoms. Coronavirus screen: Client denies travel out of the [place] in the last 14 days. At this time, the client does not indicate any symptoms associated with coronavirus-19. Ebola Screen: Patient negative for fever greater than or equal to 101.5 degrees Fahrenheit, and additional compatible Ebola Virus Disease symptoms Patient denies exposure to infectious person. Patient denies travel to an Ebola-affected area in the 21 days before illness onset. No symptoms or risks identified at this time. Initial Sepsis Screen: Does the patient meet any 2 criteria? No. Patient's initial sepsis screen is negative. Does the patient have a suspected source of infection? No. Patient's initial sepsis screen is negative. Risk Assessment: Do you want to hurt yourself or someone else? Patient reports no desire to harm self or others. Onset of symptoms was May 21, 2020. 16:43 Acuity: MONI 3 ca1 16:43 Method Of Arrival: Ambulatory ca1 Triage Assessment: 18:41 General: Appears in no apparent distress. Behavior is calm, cooperative, appropriate bw for age. Pain: Denies pain. Historical: - Allergies: 16:48 No Known Allergies; ca1 - PMHx: 16:48 Hyperlipidemia; Hypertension; Defibrillator; Myocardial infarction; ca1 - PSHx: 16:48 Heart stents; ca1 - Immunization history:: Client reports receiving the 2nd dose of the Covid vaccine, Date received: March 2020 Pneumococcal vaccine is up to date, Flu vaccine is up to date. - Social history:: Smoking status: Patient denies any tobacco usage or history of. Screenin:29 Abuse screen: Denies threats or abuse. Nutritional screening: No deficits noted. bw Tuberculosis screening: No symptoms or risk factors identified. Fall Risk None identified. Assessment: 18:28 Pain: Pain radiates to chest Pain began 1 day ago. Neuro: No deficits noted. bw Cardiovascular: No deficits noted. Reports chest pain, fatigue. Respiratory: No deficits noted. GI: No deficits noted. : No deficits noted. EENT: No deficits noted. Derm: No signs and/or symptoms reported regarding the dermatologic system. Vital Signs: 16:43 BP 126 / 65; Pulse 91; Resp 17 S; Temp 97.1(TE); Pulse Ox 96% on R/A; Weight 89.81 kg ca1 (R); Height 5 ft. 7 in. (170.18 cm) (R); Pain 5/10; 18:29 BP 121 / 74; Pulse 80; Resp 18; Pulse Ox 95% on R/A; bw 16:43 Body Mass Index 31.01 (89.81 kg, 170.18 cm) ca1 ED Course: 16:31 Patient arrived in ED. ds1 16:46 Triage completed. ca1 16:48 Arm band placed on right wrist. ca1 17:35 Madhu Garcia PA is PHCP. jr8 17:35 Eric Slade MD is Attending Physician. jr8 17:40 Kaylah Persaud RN is Primary Nurse. bw 18:01 Chest Pa And Lat (2 Views) XRAY In Process Unspecified. EDMS 18:29 Patient has correct armband on for positive identification. Bed in low position. Call bw light in reach. Side rails up X2. property assessment monitor on. Pulse ox on. NIBP on. Warm blanket given. 18:29 No provider procedures requiring assistance completed. Patient did not have IV access bw during this emergency room visit. Patient maintains SpO2 saturation greater than 95% on room air. 18:36 Virginie Bright MD is Referral Physician. jr8 Administered Medications: 18:36 Drug: Tylenol #3 (300 mg-30 mg) 1 tablet Route: PO; bw Outcome: 18:36 Discharge ordered by . jr8 18:40 Discharged to home ambulatory. bw 18:40 Condition: stable 18:40 Discharge instructions given to patient, family. 18:54 Patient left the ED. bw Signatures: Dispatcher [employer] EDKS Manisha Mcgregor ds1 Madhu Garcia PA PA jr8 Argentina Diaz RN RN ca1 Persaud, Kaylah, RN RN bw
[2020-05-21] MEDS ORDERED: CODEINE 30MG/APAP 300MG TAB ONE (18:40)
--- NOTE | 2020-05-21 19:05 | RAD REPORT ---
EXAM DESCRIPTION: RAD - Chest Pa And Lat (2 Views) - 05/21/2020 6:04 pm CLINICAL HISTORY: CHEST PAIN COMPARISON: Single-view chest February 2018 TECHNIQUE: Frontal and lateral views of the chest were obtained. FINDINGS: The lungs are clear of an acute process. Interstitial pattern matches comparison. Mediasti nal and hilar granulomatous calcifications or calcified lymph nodes are stable. Defibrillator in plac e Heart size is normal and central vasculature is within normal limits. No pleural effusion or pne umothorax seen. No acute bony finding noted. No aortic abnormality. IMPRESSION: No acute cardiopulmonary process. No significant change from comparison study.
[2020-05-21 23:35] VITALS: BP 126/65; TEMP 97.1; O2SAT 96
--- NOTE | 2020-05-22 06:52 | EKG ---
Test Date: 2020-05-21 Test Time: 16:51:51 Fashion Stylist: AYSHA MEASUREMENT RESULTS: Intervals: Rate: 88 MO: 198 QRSD: 96 QT: 362 QTc: 438 [place]: P: 38 MO: 198 QRS: -10 T: 104 INTERPRETIVE STATEMENTS: Sinus rhythm with occasional premature ventricular complexes Minimal voltage criteria for LVH, may be normal variant Possible Anteroseptal infarct, age undetermined ST & T wave abnormality, consider lateral ischemia Abnormal ECG Compared to ECG 07/06/2017 08:40:00 Ventricular premature complex(es) now present Left ventricular hypertrophy now present Myocardial infarct finding still present ST (T wave) deviation still present Possible ischemia still present Electronically Signed On 05-22-20 06:51:25 CDT by Josiah Johnson
== END 2020-05-21 18:54 | disposition home or self-care (01) ==
LOC: ER 16:30
DX: R07.89 Other chest pain (principal); I10 Essential (primary) hypertension; Z95.810 Presence of automatic (implantable) cardiac defibrillator; Z95.818 Presence of other cardiac implants and grafts
CPT/HCPCS: 71046; 93005; 99284

== ENCOUNTER 2020-09-25 06:30 | Day surgery (SDC) | payer OTHER ==
--- NOTE | 2020-09-23 15:46 | RAD REPORT ---
EXAM DESCRIPTION: Rufus Dangelo And Za (2 Views)09/23/2020 2:56 pm CLINICAL HISTORY: Hypertension/preop for cardiac catheterization COMPARISON: April 2020 FINDINGS: The lungs appear clear of acute infiltrate. The heart is mildly enlarged. Pacemaker leads are in place. IMPRESSION: No acute abnormalities displayed
[2020-09-23 16:01] LABS: Absolute Lymphocytes (CBC) 3.1 K/uL (0.7-4.9); Basophils % 0.4 % (0-1.3); Hematocrit 38.6 % (39.6-49.0); MPV 8.6 fL (7.6-11.3); RBC Red Blood Cell Count 4.04 M/uL (4.33-5.43)
[2020-09-23 16:02] LABS: Protime INR 0.97
[2020-09-23 16:07] LABS: Potassium 3.9 mmol/L (3.5-5.1)
--- NOTE | 2020-09-24 17:01 | EKG ---
Test Date: 2020-09-23 Test Time: 13:34:13 Fabric And Accessories Estimator: LEXI MEASUREMENT RESULTS: Intervals: Rate: 72 CO: 202 QRSD: 96 QT: 372 QTc: 407 [place]: P: 72 CO: 202 QRS: -13 T: 69 INTERPRETIVE STATEMENTS: Sinus rhythm with occasional premature ventricular complexes Septal infarct, age undetermined ST & T wave abnormality, consider anterolateral ischemia Abnormal ECG Compared to ECG 05/21/2020 16:51:51 Left ventricular hypertrophy no longer present Myocardial infarct finding still present ST (T wave) deviation still present Possible ischemia still present Electronically Signed On 09-24-20 16:59:01 CDT by Josiah Johnson
[2020-09-25] MEDS ORDERED: HEPA 1000U/500MLS 1,000 UNIT/500 ML BAG IV ONE (07:08)
[2020-09-25] MEDS ORDERED: LIDOCAINE 1% 20 ML MDV ONE (07:08)
[2020-09-25] MEDS ORDERED: MIDAZOLAM HCL 2 MG/2 ML INJ ONE (07:09)
[2020-09-25] MEDS ORDERED: FENTANYL CITR 100 MCG/2 ML ONE (07:09)
[2020-09-25] MEDS ORDERED: ATROPINE SULF 1 MG/10 ML SYR IV ONE (07:10)
[2020-09-25] MEDS ORDERED: NA CHLORIDE 0.9% 0 ML ONE (07:10)
[2020-09-25 07:17] VITALS: TEMP 96.9
[2020-09-25] MEDS ORDERED: NA CHLORIDE 0.9% 500 ML ONE (07:21)
--- NOTE | 2020-09-25 08:42 | OP ---
Date of Procedure: 09/25/2020 Surgeon: Josiah Johnson MD Hand Cigar Maker: Owen Kaur. Procedures Performed: Left heart catheterization, selective coronary arteriogram. Indication: CAD, status post stent, atypical chest pain, and positive stress test. Procedure In Detail: Mr. 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 A 6-Armenian wisdom th introduced in the right common femoral artery successfully. Angiography there was normal. StarCl ose was used to close the case. Tea catheter was used to do the diagnostic catheterization. He was found to have about 20% left main, about 40% mid LAD stenosis in between 2 stents. The circumfle x was normal. RCA showed some minor plaquing. There were no complications. The patient tolerated t he procedure well. Estimated Blood Loss: 5 cc. Postoperative Diagnosis: Moderate coronary artery disease, patent LAD stent, minor in-stent restenos is. Plan: To continue medical therapy. Anesthesia: Total conscious sedation 45 minutes. Disposition: The patient remained in the hospital for 2 hours of bedrest, and he will go home and se e me in the office in the next week or two. KHUSHBOO/[email or web address] Voice ID: [id number] Report ID: [id number]
[2020-09-25 09:40] VITALS: BP 141/68; O2SAT 96
== END 2020-09-25 10:01 | disposition home or self-care (01) ==
LOC: CCL 06:30
DX: I25.10 Atherosclerotic heart disease of native coronary artery without angina pectoris (principal); T82.855A Stenosis of coronary artery stent, initial encounter; I42.8 Other cardiomyopathies; E78.2 Mixed hyperlipidemia; I12.9 Hypertensive chronic kidney disease with stage 1 through stage 4 chronic kidney disease, or unspecified chronic kidney disease; N18.2 Chronic kidney disease, stage 2 (mild); Z95.5 Presence of coronary angioplasty implant and graft; Z95.810 Presence of automatic (implantable) cardiac defibrillator; Z20.822 Contact with and (suspected) exposure to COVID-19; Z82.49 Family history of ischemic heart disease and other diseases of the circulatory system
CPT/HCPCS: 93005; 85025; 80048; 36415; 85610; 85730; 71046; 93454; U0003; C1893; J2250; J3010; J7040; J1644; J0583